=== PATIENT | male | born 1975 | race Caucasian/White ===

== ENCOUNTER 2019-02-15 19:53 | Emergency (ER) | payer SELFPAY ==
[2019-02-15] MEDS ORDERED: HALOPERIDOL 5 MG TABLET PO ONE (20:45)
[2019-02-15] MEDS ORDERED: NORMAL SALINE 1000 ML 1,000 ML IV ONE (20:45)
[2019-02-15 20:53] LABS: ABSOLUTE LYMPHOCYTES (AUTO) 0.9 10^3/uL (0.5-4.7); ABSOLUTE MONOCYTES (AUTO) 0.9 10^3/uL (0.1-1.4); ABSOLUTE NEUT (AUTO) 8.6 10^3/uL (1.7-8.2); BASOPHILS % (AUTO) 0.2 % (0-2); HEMATOCRIT 40.9 % (37.9-51.0); HEMOGLOBIN 14.7 g/dL (13.5-17.0); LYMPHOCYTES % (AUTO) 8.5 % (13-45); MEAN CORPUSCULAR HGB CONC 36.1 g/dL (32.0-36.0); MEAN CORPUSCULAR VOLUME 86 fl (80-97); PLATELET COUNT 257 10^3/uL (150-450); RED BLOOD COUNT 4.76 10^6/uL (4.35-5.55); SEGMENTED NEUTROPHILS % (AUTO) 82.3 % (42-78); TOTAL CELLS COUNTED % (AUTO) 100 %; WHITE BLOOD COUNT 10.5 10^3/uL (4.0-10.5)
[2019-02-15 21:02] LABS: APPEARANCE,URINE CLEAR; BILIRUBIN,URINE NEGATIVE (NEGATIVE); COLOR,URINE YELLOW; GLUCOSE, URINE NEGATIVE (NEGATIVE); KETONES,URINE 80 mg/dL (NEGATIVE); LEUKOCYTE ESTERASE,URINE NEGATIVE (NEGATIVE); NITRITE,URINE NEGATIVE (NEGATIVE); PROTEIN,URINE NEGATIVE (NEGATIVE); URINE SPECIFIC GRAVITY 1.019; UROBILINOGEN,URINE NEGATIVE mg/dL (<2.0)
[2019-02-15 21:11] LABS: ALANINE AMINOTRANSFERASE 18 U/L (21-72); ALBUMIN 4.9 g/dL (3.5-5.0); ALKALINE PHOSPHATASE 44 U/L (38-126); ANION GAP 14 (5-19); ASPARTATE AMINO TRANSFERASE 21 U/L (17-59); BILIRUBIN,DIRECT 0.4 mg/dL (0.0-0.4); BILIRUBIN,TOTAL 1.1 mg/dL (0.2-1.3); BLOOD UREA NITROGEN 17 mg/dL (7-20); CALCIUM 10.2 mg/dL (8.4-10.2); CARBON DIOXIDE 24 mmol/L (22-30); CHLORIDE 103 mmol/L (98-107); GLUCOSE 101 mg/dL (75-110); POTASSIUM 4.2 mmol/L (3.6-5.0); SODIUM 140.8 mmol/L (137-145); TOTAL PROTEIN 7.8 g/dL (6.3-8.2)
[2019-02-15 21:12] LABS: ACETAMINOPHEN < 10 ug/mL (10-30); ALCOHOL < 10 mg/dL (NONE DETECTED); SALICYLATE < 1.0 mg/dL (2.0-20.0)
[2019-02-15 21:17] LABS: URINE AMPHETAMINES SCREEN NEGATIVE; URINE BARBITURATES SCREEN NEGATIVE; URINE BENZODIAZEPINES SCREEN UNCONFIRMED POSITIVE; URINE COCAINE SCREEN NEGATIVE; URINE MARIJUANA (THC) SCREEN NEGATIVE; URINE METHADONE SCREEN NEGATIVE; URINE PHENCYCLIDINE SCREEN NEGATIVE
--- NOTE | 2019-02-15 21:42 | ER Document Report ---
Addendum entered and electronically signed by ANDREW RIVERA MD 02/16/19 14:58: Discharge - Discharge Clinical Impression: Agitation Psychosis Qualifiers: Psychosis type: unspecified psychosis type Qualified Code(s): F29 - Unspecified psychosis not due to a substance or known physiological condition Condition: Stable Disposition: HOME, SELF-CARE Additional Instructions: You have been evaluated by both medical and behavioral health providers while in the emergency department. You have been cleared from both acute medical and psychiatric services. You have a Bipolar history, admitted you were not yourself, had poor sleep and additional marital stress. You are being prescribed medications to aid with mood stabilization. You should take the medication as d irected. Hallucinations You seem to be having hallucinations. Hallucinations are seeing, hearing, or feeling things that don't exist. These symptoms commonly occur with drug abuse and schizophrenia. Drugs like PCP, LSD, MDMA, peyote, and "psychedelic mushrooms" can cause frightening hallucinations. Users of methamphetamine or crack cocaine often see and feel bugs crawling on their skin. Patients with schizophrenia may hear voices that no one else can hear. The delusions of schizophrenia often involve conspiracies or relationships that are not real. When symptoms are due to drug abuse, the mental state usually improves as the drug wears off. Someone you trust should be with you until you are better, to protect you and calm your fears. Tranquilizer medicine is helpful at controlling hallucinations, anxiety, and deluded thoughts. Get a proper diet and enough sleep. Most patients do very well when they get proper medical treatment and social support. You should return at once if your symptoms get worse, if you are having suicidal thoughts or thoughts about hurting others, or if you feel that you are in danger. Bipolar Disorder Bipolar disorder is also called manic-depressive disorder. Depression alternates with brain hyperactivity called christa. Each phase lasts from several days to a few weeks. We don't know exactly what causes bipolar disorder, but it's treatable. During the "manic phase," you may feel elated and energetic. You may have racing thoughts, rapid speech, increased activity, and grandiose ideas. During this time, you may not realize how poor your judgement is. Inappropriate spending, drug abuse, excessive alcohol use, marriage problems, and irresponsible sexual behavior are common during the manic phase. During the "depressive phase," you might feel depressed, guilty, worthless, fatigued, and unable to concentrate. You might have thoughts of suicide. Good treatments are available for bipolar disorder. [place] is a classic drug for bipolar disorder, and is still often useful. If the manic phase is very mild, an antidepressant alone can be prescribed. If the manic phase is very severe, an antipsychotic medicine (such as Haldol) may be needed. The treatment must be matched to your symptoms, so it's important to work closely with your ycazatric care provider. Contact your physician, the hospital emergency center, crisis line, or your counsellor if you are losing control or having self-destructive thoughts. Follow-Up Plan: You are being started on and provided prescriptions for Zyprexa 5MG twice a day (for psychosis/mood stabilization/impulse control) and Cogentin 1MG daily (prescribed with medications like Zyprexa for tremors). Your mother has agreed to be in charge of medications and administration. You should take this medication as prescribed. you should follow up with an outpatient psychiatric medication provider as soon as possible in [place] when you return back there in a week. You have been given the [facility] Mobile Crisis number for crisis, talk therapy and linkage to other local [facility] ports/services. If your symptoms persist or worsen contact your physician immediately, utilize mobile crisis or return to the emergency department. Prescriptions: Benztropine Mesylate [Cogentin 1 mg Tablet] 1 mg PO DAILY #30 tablet Olanzapine [Zyprexa 5 mg Tablet] 5 mg PO BID #60 tablet Referrals: [facility] Crisis Team [Outside] - Follow up as needed Addendum entered and electronically signed by SERGIO KELLY LPC 02/16/19 14:36: Discharge - Discharge Clinical Impression: Agitation Psychosis Qualifiers: Psychosis type: unspecified psychosis type Qualified Code(s): F29 - Unspecified psychosis not due to a substance or known physiological condition Condition: Stable Disposition: HOME, SELF-CARE Additional Instructions: You have been evaluated by both medical and behavioral health providers while in the emergency department. You have been cleared from both acute medical and psychiatric services. You have a Bipolar history, admitted you were not yourself, had poor sleep and additional marital stress. You are being prescribed medications to aid with mood stabilization. You should take the medication as directed. Hallucinations You seem to be having hallucinations. Hallucinations are seeing, hearing, or feeling things that don't exist. These symptoms commonly occur with drug abuse and schizophrenia. Drugs like PCP, LSD, MDMA, peyote, and "psychedelic mushrooms" can cause frightening hallucinations. Users of methamphetamine or crack cocaine often see and feel bugs crawling on their skin. Patients with schizophrenia may hear voices that no one else can hear. The delusions of schizophrenia often involve conspiracies or relationships that are not real. When symptoms are due to drug abuse, the mental state usually improves as the drug wears off. Someone you trust should be with you until you are better, to protect you and calm your fears. Tranquilizer medicine is helpful at controlling hallucinations, anxiety, and deluded thoughts. Get a proper diet and enough sleep. Most patients do very well when they get proper medical treatment and social support. You should return at once if your symptoms get worse, if you are having suicidal thoughts or thoughts about hurting others, or if you feel that you are in danger. Bipolar Disorder Bipolar disorder is also called manic-depressive disorder. Depression alternates with brain hyperactivity called christa. Each phase lasts from several days to a few weeks. We don't know exactly what causes bipolar disorder, but it's treatable. During the "manic phase," you may feel elated and energetic. You may have racing thoughts, rapid speech, increased activity, and grandiose ideas. During this time, you may not realize how poor your judgement is. Inappropriate spending, drug abuse, excessive alcohol use, marriage problems, and irresponsible sexual behavior are common during the manic phase. During the "depressive phase," you might feel depressed, guilty, worthless, fatigued, and unable to concentrate. You might have thoughts of suicide. Good treatments are available for bipolar disorder. [place] is a classic drug for bipolar disorder, and is still often useful. If the manic phase is very mild, an antidepressant alone can be prescribed. If the manic phase is very severe, an antipsychotic medicine (such as Haldol) may be needed. The treatment must be matched to your symptoms, so it's important to work closely with your psychiatric care provider. Contact your physician, the hospital emergency center, crisis line, or your counsellor if you are losing control or having self-destructive thoughts. Follow-Up Plan: You are being started on and provided prescriptions for Zyprexa 5MG twice a day (for psychosis/mood stabilization/impulse control) and Cogentin 1MG daily (prescribed with medications like Zyprexa for tremors). Your mother has agreed to be in charge of medications and administration. You should take this medication as prescribed. you should follow up with an outpatient psychiatric medication provider as soon as possible in [place] when you return back there in a week. You have been given the [facility] Mobile Crisis number for crisis, talk therapy and linkage to other local supports/services. If your symptoms persist or worsen contact your physician immediately, utilize mobile crisis or return to the emergency department. Referrals: [facility] [Outside] - Follow up as needed Original Note: ED General - General Chief Complaint: Psych Problem Stated Complaint: ABNORMAL BEHAVIOR Time Seen by Provider: 02/15/19 20:43 Cannot obtain history due to: Uncooperative, Altered mental status Notes: Patient is a 44-year-old male apparently with a history of bipolar disorder who presents by EMS. Apparently the patient drove from [place], arrived at his family's home here in [place], noted to be confused, repeating the same line over and over again, responding to internal stimuli. Family contacted EMS, patient required intramuscular Versed for calming and was subsequently transported to the emergency department. Please see nursing documentation. Patient will not speak to me at the time of my assessment. - Related Data Allergies/Adverse Reactions: No Known Allergies Allergy (Unverified 02/15/19 20:46) Past Medical History - General Information source: Emergency Med Personnel Cannot obtain history due to: Mentally challenged, Uncooperative - Social History Smoking Status: Never Smoker Frequency of alcohol use: None Drug Abuse: None Lives with: Family Family History: Reviewed & Not Pertinent Patient has suicidal ideation: No Patient has homicidal ideation: No Renal/ Medical History: Denies: Hx Peritoneal Dialysis Psychiatric Medical History: Reports: Hx Bipolar Disorder Review of Systems - Review of Systems Notes: Constitutional: Negative for fever. HENT: Negative for sore throat. Eyes: Negative for visual changes. Cardiovascular: Negative for chest pain. Respiratory: Negative for shortness of breath. Gastrointestinal: Negative for abdominal pain, vomiting or diarrhea. Genitourinary: Negative for dysuria. Musculoskeletal: Negative for back pain. Skin: Negative for rash. Neurological: Negative for headaches, weakness or numbness. 10 point ROS negative except as marked above and in HPI. Physical Exam - Vital signs Vitals: Temp Pulse Resp BP Pulse Ox 98.3 F 92 16 141/81 H 97 02/15/19 19:59 02/15/19 19:59 02/15/19 19:59 02/15/19 19:59 02/15/19 19:59 Interpretation: Normal Notes: PHYSICAL EXAMINATION: GENERAL: Well-appearing, well-nourished and in no acute distress. HEAD: Atraumatic, normocephalic. EYES: Pupils equal round and reactive to light, clera anicteric, conjunctiva are normal. ENT: nares patent, oropharynx clear without exudates. Moist mucous membranes. NECK: Normal range of motion, supple without lymphadenopathy LUNGS: Breath sounds clear to auscultation bilaterally and equal. No wheezes rales or rhonchi. HEART: Regular rate and rhythm without murmurs ABDOMEN: Soft, nontender, normoactive bowel sounds. No guarding, no rebound. No masses appreciated. EXTREMITIES: Normal range of motion, no pitting or edema. No cyanosis. NEUROLOGICAL: No focal neurological deficits. Moves all extremities spontaneously PSYCH: Poor eye contact, does not respond to questions SKIN: Warm, Dry, normal turgor, no rashes or lesions noted. Course - Re-evaluation Re-evalutation: 02/15/19 21:38 Patient presents by EMS due to repetitive speech patterns, apparent confusion and agitation. The patient does not interact with me in any way. When asked him his name he states "I have no name". When I asked him if he recently drove down from [place] as reported by EMS he states "I did not drive from anywhere". When I open broad questions to the patient he does not speak. Medical screening labs and exam unremarkable. Patient is refusing all interventions in terms of medications or IV fluids. He did receive intramuscular Versed prior to arrival. At the moment the patient is clearly quite on edge and I think he would benefit from antipsychotics but does not yet meet a threshold to force him to take anything. Patient has been placed on an IVC hold. Pending evaluation by [facility] in the morning. 02/15/19 23:50 Patient is chanting, repetitive in his speech although continues to sit in the bed without any direct physical or verbal hostility. At this point I do not believe that he needs a threshold to receive involuntary intramuscular injections nor physically restrained. Will continue to monitor to determine whether or not these interventions will be indicated. 02/16/19 0100 Patient was becoming increasingly agitated, screaming and getting more combative. Patient was administered 10 mg of intermuscular help Haldol with haloperidol and has had significant improvement in his agitation since that ti me. Labs unremarkable. Patient is cleared for evaluation and disposition by behavioral health in the morning. - Vital Signs Vital signs: Temp Pulse Resp BP Pulse Ox 98.3 F 92 16 141/81 H 97 02/15/19 19:59 02/15/19 19:59 02/15/19 19:59 02/15/19 19:59 02/15/19 19:59 - Laboratory Result Diagrams: 02/15/19 20:38 02/15/19 20:38 Laboratory results interpreted by me: 02/15/19 02/15/19 02/15/19 20:38 20:38 20:38 MCHC 36.1 H Seg Neutrophils % 82.3 H Lymphocytes % 8.5 L Absolute Neutrophils 8.6 H ALT 18 L Urine Ketones 80 H Salicylates < 1.0 L Acetaminophen < 10 L - EKG Interpretation by Me Additional EKG results interpreted by me: 02/15/19 21:41 Sinus rhythm, rate 86, early repolarization pattern, QTC is 450. Critical Care Note - Critical Care Note Total time excluding time spent on procedures (mins): 38 Comments: Critical care time spent on multiple reassessments of the patient, directing care, speaking with security, nursing staff, reevaluation of patient, labs evaluation Discharge - Discharge Clinical Impression: Agitation Psychosis Qualifiers: Psychosis type: unspecified psychosis type Qualified Code(s): F29 - Unspecified psychosis not due to a substance or known physiological condition Condition: Fair Disposition: PSYCH HOSP/UNIT
--- NOTE | 2019-02-15 23:45 | EKG REPORT ---
SEVERITY:- NORMAL ECG - SINUS RHYTHM ST ELEV, PROBABLE NORMAL EARLY REPOL PATTERN : Confirmed by: Nidhi Wheeler MD 15-Feb-2019 23:44:05
[2019-02-16] MEDS ORDERED: HALOPERIDOL LACTATE INJ 5 MG/1 ML VIAL IM ONE (00:20)
--- NOTE | 2019-02-16 14:45 | ER Document Report ---
Doctor's Note Notes: 02/16/19 14:43 Rounds: Chart reviewed and patient interviewed. Patient is being evaluated for manic presentation. Apparently has a history of bipolar disorder, but has been stable and not on any medications. He was very difficult to control as night and required Haldol IM. This morning, patient is doing much better. Quiet and calm and conversant. No complaints. Vital signs are all essentially normal. Lab studies are all essentially normal. Patient appears to be medically stable for transfer or discharge. Nigel Gardiner MD
[2019-02-16] MEDS ORDERED: BENZTROPINE MESYLATE 1 MG TABLET PO ONE (14:52)
[2019-02-16] MEDS ORDERED: OLANZAPINE 5 MG TABLET PO ONE (14:52)
[2019-02-16 15:51] VITALS: BP 105/67
--- NOTE | 2019-02-18 13:01 | PSYCHOLOGICAL NOTE ---
Psych Note - Psych Note Date seen by psych provider: 02/16/19 Psych Note: Diagnosis: Distress with Spouse (just served divorce papers) Noncompliance with medication Bipolar by History Medication recommendations made by the psychiatric medical provider, Dr. Yung bajwa MD., includes: Add Zyprexa 5MG twice a day for psychosis/mood stabilization/impulse control Add Cogentin 1MG daily to curb tremor side effects often associated with antipsychotic medications Impression/Plan: Patient is cleared from acute psychiatric services. Recommendation to rescind 24 Hour IVC Petition. He denied current SI/HI and no observed psychosis. He and other [facility]. Mother reported patient was fine until the 12 hour car ride (seemed delusional, repeating same phrase over and over). Patient stated his family thought he was acting weird. He noted he had not been sleeping well, got some sleep last night and was feeling better. He admitted to being diagnosed with Anxiety with a little bit of Bipolar and having thyroid issue. He acknowledged he had been hospitalized in previously. He stated he has been under a lot of stress. He agreed to take the medication and was psychoeducated that it helps with mood which can help given the current stress. Mother included in plan of care and to provide transportation. Patient and mother provided with outpatient MH resource sheet which highlighted [facility]. Mother agreed to be in control of and administer medication. She also said the would be seeking a new provider for patient once back in since his previous one retired. Consulted with Dr. Wallace regarding the management and care of patient. ED Physician in agreement with recommendations.
== END 2019-02-16 15:51 | disposition home or self-care (01) ==
LOC: ER 19:53
DX: R45.1 Restlessness and agitation (principal); F29 Unspecified psychosis not due to a substance or known physiological condition; F31.9 Bipolar disorder, unspecified
CPT/HCPCS: 93005; 99284; 96372; 36415; 80307 ×4; 85025; 80053; 81001; 93010; J1630